=== PATIENT | female | born 1960 | race African-American/Black ===

== ENCOUNTER 2018-02-06 13:45 | Emergency (ER) | payer BC, MEDICAID ==
[~2018-02-06] VITALS: Ht 172.7 cm; Wt 66.0 kg
[2018-02-06 14:04] VITALS: BP 168/83
[2018-02-06 15:10] LABS: CHLORIDE 102 mEq/L (98-107)
[2018-02-06 15:14] LABS: BASOPHILS % 0.7 % (0.0-2.0); EOSINOPHILS % 2.1 % (0.0-5.0); ETHANOL BLOOD < 10 mg/dL; HEMATOCRIT. 41.6 % (36.0-48.0); HEMOGLOBIN. 14.1 g/dL (12.0-16.0); MEAN CORPUSCULAR HEMOGLOBIN 28.7 pg (28.0-32.0); MEAN CORPUSCULAR VOLUME 84.6 fL (81.0-99.0); MEAN PLATELET VOLUME 8.5 fl (7.4-10.4); MONOCYTES % 7.2 % (2.0-8.0); PLATELET 295 x1000/uL (130-400); RED BLOOD CELL COUNT 4.92 mill/uL (4.2-5.4); RED CELL DISTRIBUTION WIDTH 13.9 % (11.6-14.6)
== END 2018-02-06 16:39 | disposition left against medical advice (07) ==
LOC: ER 15:02
DX: R20.2 Paresthesia of skin (principal); R20.0 Anesthesia of skin; I49.8 Other specified cardiac arrhythmias; I10 Essential (primary) hypertension; F17.200 Nicotine dependence, unspecified, uncomplicated
CPT/HCPCS: 36415; 80053; 85025; 93005; 99285; G0482

== ENCOUNTER 2020-09-03 09:44 | Inpatient (IN) | payer BC, MEDICAID ==
[2020-09-03] VITALS (7 sets, daily range): BP systolic 111–151; BP diastolic 45–67
[~2020-09-03] VITALS: Ht 157.5 cm; Wt 81.6 kg
[2020-09-03] MEDS ORDERED: OMEP20CA14 MT (10:41)
[2020-09-03] MEDS ORDERED: ASPI-1406 MT (10:41)
[2020-09-03] MEDS ORDERED: PITA2TAB2 MT (10:41)
[2020-09-03] MEDS ORDERED: METO-396 PO (10:41)
[2020-09-03] MEDS ORDERED: LOSA100T32 MT (10:41)
[2020-09-03] MEDS ORDERED: MIDAZOLAM HCL 2 MG/2 ML VIAL ONE ×2 (12:10→14:02)
[2020-09-03] MEDS ORDERED: LIDOCAINE HCL 1% 20ML VIAL (Pyxis) INJ ONE (12:11)
[2020-09-03] MEDS ORDERED: FENTANYL CITRATE/PF 50MCG/ML 5ML VIAL ONE (12:11)
[2020-09-03] MEDS ORDERED: IOHEXOL-300 100 ML BOTTLE ONE (12:11)
[2020-09-03] MEDS ORDERED: IODIXANOL 320MG/ML 100 ML BOTTLE IV ONE (12:11)
[2020-09-03] MEDS ORDERED: CLOPIDOGREL 75MG TABLET ONE (13:35)
[2020-09-03] MEDS ORDERED: ASPIRIN 325MG TABLET ONE (13:35)
[2020-09-03] MEDS ORDERED: ATROPINE SULFATE 1MG/10ML SYR IV PRN (13:45)
[2020-09-03] MEDS ORDERED: ONDANSETRON HCL 4MG/2ML INJ IV PRN (13:45)
[2020-09-03] MEDS ORDERED: ACETAMINOPHEN 325MG TABLET PO PRN (13:45)
[2020-09-03] MEDS ORDERED: NICARDIPINE 100MCG/ML 10ML VIAL (CATH LAB) IV ONE (14:00)
[2020-09-03] MEDS ORDERED: HEPARIN SODIUM 1,000 UNIT/1ML VIAL IV ONE (14:00)
[2020-09-03] MEDS ORDERED: NITROGLYCERIN 50MCG/ML 10ML VIAL (CATH LAB) IV ONE (14:00)
[2020-09-03] MEDS ORDERED: FENTANYL CITRATE/PF 50MCG/ML 2ML VIAL ONE (14:02)
[2020-09-04 02:18] VITALS: BP 129/63
[2020-09-04 04:07] VITALS: BP 121/57
[2020-09-04 06:30] VITALS: BP 129/64
[2020-09-04 08:00] VITALS: BP 141/68
[2020-09-04 08:23] LABS: BASOPHILS % 0.6 % (0.0-2.0); EOSINOPHILS % 3.5 % (0.0-5.0); HEMATOCRIT. 35.9 % (36.0-48.0); HEMOGLOBIN. 12.2 g/dL (12.0-16.0); LYMPHOCYTES % 30.1 % (20.0-50.0); MEAN CORPUSCULAR VOLUME 85.2 fL (81.0-99.0); MEAN PLATELET VOLUME 9.1 fl (7.4-10.4); MONOCYTES % 8.5 % (2.0-8.0); NEUTROPHILS % 57.3 % (40.0-76.0); PLATELET 219 x1000/uL (130-400); RED BLOOD CELL COUNT 4.21 mill/uL (4.2-5.4); RED CELL DISTRIBUTION WIDTH 14.2 % (11.6-14.6)
[2020-09-04 08:49] LABS: CHLORIDE 110 mEq/L (98-107)
[2020-09-04] MEDS ORDERED: CLOPIDOGREL 75MG TABLET PO SCH (09:00)
[2020-09-04] MEDS ORDERED: ASPIRIN 325MG TABLET PO SCH (09:00)
[2020-09-04 10:00] VITALS: BP 149/85
[2020-09-04 10:35] VITALS: BP 149/85
== END 2020-09-04 11:38 | disposition home or self-care (01) | DRG 247 ==
LOC: CCL 09:44 → 3WST 09:45
PROVIDERS: ADMIT Specialist; ATTEND Specialist
PROC: 027034Z Dilation of Coronary Artery, One Artery with Drug-eluting Intraluminal Device, Percutaneous Approach (ICD-10-PCS; principal; 2020-09-03)
PROC: 4A023N7 Measurement of Cardiac Sampling and Pressure, Left Heart, Percutaneous Approach (ICD-10-PCS; 2020-09-03)
PROC: B211YZZ Fluoroscopy of Multiple Coronary Arteries using Other Contrast (ICD-10-PCS; 2020-09-03)
PROC: B215YZZ Fluoroscopy of Left Heart using Other Contrast (ICD-10-PCS; 2020-09-03)
DX: I25.10 Atherosclerotic heart disease of native coronary artery without angina pectoris (principal); I10 Essential (primary) hypertension; E78.5 Hyperlipidemia, unspecified; Z90.710 Acquired absence of both cervix and uterus; Z86.73 Personal history of transient ischemic attack (TIA), and cerebral infarction without residual deficits; Z79.82 Long term (current) use of aspirin; Z79.899 Other long term (current) drug therapy
CPT/HCPCS: 36415; 80048; 85025; 85347; 92928; 93005; 93458; C1769; C1874; C1887; C1893; J1644; J2250; J3010; J3490; Q9967; C1725

== ENCOUNTER → 2020-09-03 | Outpatient (CLI) | payer BC, MEDICAID ==
[~2020-09-03] MED LIST: ASPI-1406 MT; LOSA100T32 MT; METO-396 PO; OMEP20CA14 MT; PITA2TAB2 MT
== END | disposition home or self-care (01) ==
LOC: LAB 08:14
PROVIDERS: ATTEND Specialist
DX: Z01.812 Encounter for preprocedural laboratory examination (principal); R05 Cough; Z20.822 Contact with and (suspected) exposure to COVID-19
CPT/HCPCS: 87426